=== PATIENT | male | born 1990 | race Native Hawaiian/Other Pacific Islander ===

== ENCOUNTER 2017-01-30 21:07 | Inpatient (IN) | payer OTHER ==
[2017-01-30] MEDS ORDERED: Sodium Chloride 0.9% 1,000 ML IV ONE (22:02)
[2017-01-30] MEDS ORDERED: Sodium Chloride 0.9% 1,000 ML ONE (22:08)
[2017-01-30 22:25] LABS: BASO # 0.1 K/uL (0.0-0.2); BASO % 0.7 % (0.0-2.0); EOS # 0.7 K/uL (0.0-0.7); EOS % 8.4 % (0.0-4.0); HEMATOCRIT 38.7 % (35.0-51.0); LYMPH # 3.1 K/uL (1.0-4.3); MEAN CELL VOLUME 79.8 fL (80.0-94.0); MEAN CORPUSCULAR HEMOGLOBIN 26.3 pg (27.0-31.0); MEAN PLATELET VOLUME 7.8 fL (7.2-11.7); MONO # 0.7 K/uL (0.0-0.8); MONO % 8.4 % (0.0-10.0); RED CELL DISTRIBUTION WIDTH 12.8 % (11.5-14.5); WHITE BLOOD COUNT 8.8 K/uL (4.8-10.8)
[2017-01-30 22:37] LABS: CHLORIDE 100 mmol/L (98-107); SODIUM 142 mmol/L (132-148)
[2017-01-30 22:38] LABS: POTASSIUM 3.8 mmol/L (3.6-5.2)
[2017-01-30 22:39] LABS: GFR AFRICAN-AMERICAN > 60
[2017-01-30 22:40] LABS: ALB/GLOB RATIO 1.5 (1.0-2.1); ALKALINE PHOSPHATASE 58 U/L (38-126); ALT/SGPT 23 U/L (21-72); AST/SGOT 20 U/L (17-59); BILIRUBIN,TOTAL 0.5 mg/dL (0.2-1.3); BLOOD UREA NITROGEN 17 mg/dL (9-20); CALCIUM 8.4 mg/dl (8.6-10.4); CARBON DIOXIDE 25 mmol/L (22-30); GLUCOSE,RANDOM 100 mg/dL (75-110)
[2017-01-30 23:08] LABS: RBC URINE < 1 /hpf (0-3); URINE BILIRUBIN NEGATIVE (NEGATIVE); URINE BLOOD NEGATIVE (NEGATIVE); URINE COLOR Straw (YELLOW); URINE GLUCOSE (UA) NORMAL (Normal); URINE KETONE NEGATIVE (NEGATIVE); URINE LEUKOCYTE ESTERASE NEG Leu/uL (Negative); URINE PROTEIN NEGATIVE (NEGATIVE); URINE UROBILINOGEN NORMAL mg/dL (0.2-1.0); WBC URINE < 1 /hpf (0-5)
--- NOTE | 2017-01-30 23:58 | C.PDOC ---
History Of Present Illness 26 year old male presents to the ED with complaints of left sided intermittent, non-radiating periumbilical pain, nausea, and three episodes of vomiting x 2 days. He tried taking pepcid and tylenol at home with no relief. Patient denies diarrhea, fever/chills, dysuria, or hematuria. He denies personal history of kidney stones, but father has had stones. Time Seen by Provider: 01/30/17 21:38 Chief Complaint (Nursing): Abdominal Pain History Per: Patient History/Exam Limitations: no limitations Onset/Duration Of Symptoms: Days Current Symptoms Are (Timing): Still Present Severity: Moderate Location Of Pain/Discomfort: Periumbilical Radiation Of Pain To:: None Quality Of Discomfort: Sharp, "Pain" Associated Symptoms: Nausea, Vomiting. denies: Diarrhea Past Medical History Reviewed: Historical Data, Nursing Documentation, Vital Signs Vital Signs: Last Vital Signs Temp 97.5 F L 01/31/17 01:32 Pulse 57 L 01/31/17 01:32 Resp 16 01/31/17 01:32 BP 128/80 01/31/17 01:32 Pulse Ox 97 01/31/17 01:32 - Medical History PMH: No Chronic Diseases Family History: Denies: Other Other Family History: father - kidney stones - Social History Hx Alcohol Use: No Hx Substance Use: No - Immunization History Hx Tetanus Toxoid Vaccination: No Hx Influenza Vaccination: No Hx Pneumococcal Vaccination: No Review Of Systems Except As Marked, All Systems Reviewed And Found Negative. Constitutional: Negative for: Fever, Chills Cardiovascular: Negative for: Chest Pain, Palpitations Respiratory: Negative for: Cough, Shortness of Breath Gastrointestinal: Positive for: Nausea, Vomiting, Abdominal Pain (periumbilical ). Negative for: Diarrhea Genitourinary: Negative for: Dysuria, Hematuria Physical Exam - Physical Exam Appears: Well, Non-toxic, In Acute Distress (in mild pain ) Skin: Warm, Dry Head: Normacephalic Oral Mucosa: Moist Cardiovascular: Rhythm Regular Respiratory: Normal Breath Sounds, No Rales, No Rhonchi, No Wheezing Gastrointestinal/Abdominal: Bowel Sounds, Soft, Tenderness (RLQ and suprapubic TTP ), No Distention, No Guarding, No Rebound Back: Normal Inspection, No CVA Tenderness Neurological/Psych: Oriented x3 ED Course And Treatment - Laboratory Results Result Diagrams: 01/30/17 22:22 01/30/17 22:22 Lab Interpretation: Normal ECG: Interpreted By Me, Viewed By Me (sinus bradycardia 57 bpm, normal axis, no acute ST/T wave changes) ECG Interpretation: Normal O2 Sat by Pulse Oximetry: 98 (RA) Pulse Ox Interpretation: Normal - Radiology CXR: Interpreted by Me, Viewed By Me CXR Interpretation: Yes: No Acute Disease - CT Scan/US CT SCAN ABD/PELVIS Other Rad Studies (CT/US): Read By Radiologist, Radiology Report Reviewed CT/US Interpretation: Accession No. : [id number]. Patient Name / ID : BALJIT SANTACRUZ / [id number]. Exam Date : 01/30/2017 23:50:41 ( Approved ). Study Comment : Sex / Age : M / 26Y. Creator : NADIRA SANDERS. Dictator : Grey Roll Worker : Collection Administrator : NADIRA SANDERS. Approver2 : Report Date : 2016 00:13:00. My Comment : . [facility]. [address] [place] [address]. Tel. no. [phone]. . . Patient Name: NEETA SMILEY . Pt. Address: [address] [place] [address]. Rec #: [id number]. [place] [address]: Janey Pace DO Pt Phone: [facility] 1990 [facility] Age : 26 Order #: [id number]. Reason for exam: rlq pain r/o stone vs appy. . . . . . CT Scan. . . ABD PELVIS W /O PO OR IV CONT Exam Date: 01/30/17. . This imaging exam was performed at [facility]. EXAM: CT Abdomen and Pelvis Without Intravenous Contrast. . CLINICAL HISTORY: 26 years old, male; Pain; Abdominal pain and other: Left side pain goimg to. lower mid abd; Additional info: Rlq pain R/O stone vs appy. . TECHNIQUE: Axial computed tomography images of the abdomen and pelvis without. intravenous contrast. This CT exam was performed using one or more of the. following dose reduction techniques: automated exposure control, adjustment of. the mA and/or kV according to patient size, and/or use of iterative. reconstruction technique. Coronal and sagittal reformatted images were created and reviewed. . COMPARISON: No relevant prior studies available. . . . FINDINGS: Lower thorax: The bilateral lung bases are clear. . ABDOMEN: Liver: No acute findings. Gallbladder and bile ducts: The gallbladder is decompressed, without. calcified stones. No intra-extrahepatic biliary ductal dilation. Pancreas: Limited evaluation secondary to the lack of intravenous contrast. Spleen: No acute findings. Adrenals: No acute findings. Kidneys and ureters: No obstructing stones. No hydronephrosis. A punctate. calcification is identified within the left hemipelvis, posterior and medial to. the course of the left ureter without significant left-sided. hydroureteronephrosis. . . PELVIS: Bladder: No acute findings. Reproductive: No acute findings. Appendix : The appendix is distended, measuring 10 mm and edematous without. intraluminal air. Trace surrounding periappendiceal and pericecal inflammatory. change is noted. No drainable fluid collection or perforation is present. . ABDOMEN and PELVIS: Stomach and bowel: As above. Peritoneum: As above. Lymph nodes: Limited evaluation without intravenous contrast. Vasculature: No aortic aneurysm. Bones: No acute fracture. . IMPRESSION: . Findings ( which in the appropriate clinical scenario) suggest early acute. appendicitis, for which clinical correlation is needed. . Dictated By: Nadira Sanders MD. Dictated Date/Time: 01/31/1712. Signed By: Nadira Sanders MD. Date Signed: 01/31/1712. Transcribed By: [facility]. Transcribe Date/Time: 01/31/1712. BISMARK/KEIKO Progress Note: Blood work, UA, CT scan abd/pelvis ordered and reviewed. Patient given IV NS bolus, IV toradol. CT scan shows early acute appendicitis- IV zosyn ordered. - Physician Consult Information Physician Contacted: Zack Anderson Outcome Of Conversation: Discussed patient with Dr. Anderson, he agrees with admission to his service for acute appendicitis. vice president tax notified. Medical Decision Making Medical Decision Making: differential diagnoses considered: acute appendicitis, renal colic, gastroenteritis, colitis, pyelonephritis, cystitis, prostatitis, diverticulitis , testicular torsion. musculoskeletal pain Disposition - Disposition Disposition: HOSPITALIZED Disposition Time: 00:40 Condition: STABLE - Clinical Impression Clinical Impression: Acute appendicitis - Scribe Statement The provider has reviewed the documentation as recorded by the Scribe Shawna Vargas All medical record entries made by the Scribe were at my direction and personally dictated by me. I have reviewed the chart and agree that the record accurately reflects my personal performance of the history, physical exam, medical decision making, and the department course for this patient. I have also personally directed, reviewed, and agree with the discharge instructions and disposition. Decision To Admit - Pt Status Changed To: Hospital Disposition Of: Inpatient - Admit Certification Admit to Inpatient:: After my assessment, the patient will require hospitalization for at least two midnights. This is because of the severity of symptoms shown, intensity of services needed, and/or the medical risk in this patient being treated as an outpatient. - InPatient: Physician Admission Certification:: see notes - . Bed Request Type: Regular Admitting Physician: Zack Anderson Patient Diagnosis: Acute appendicitis
--- NOTE | 2017-01-31 00:13 | CT ---
EXAM: CT Abdomen and Pelvis Without Intravenous Contrast CLINICAL HISTORY: 26 years old, male; Pain; Abdominal pain and other: Left side pain goimg to lower mid abd; Additional info: Rlq pain R/O stone vs appy TECHNIQUE: Axial computed tomography images of the abdomen and pelvis without intravenous contrast. This CT exam was performed using one or more of the following dose reduction techniques: automated exposure control, adjustment of the mA and/or kV according to patient size, and/or use of iterative reconstruction technique. Coronal and sagittal reformatted images were created and reviewed. COMPARISON: No relevant prior studies available. FINDINGS: Lower thorax: The bilateral lung bases are clear. ABDOMEN: Liver: No acute findings Gallbladder and bile ducts: The gallbladder is decompressed, without calcified stones. No intra-extrahepatic biliary ductal dilation. Pancreas: Limited evaluation secondary to the lack of intravenous contrast. Spleen: No acute findings. Adrenals: No acute findings. Kidneys and ureters: No obstructing stones. No hydronephrosis. A punctate calcification is identified within the left hemipelvis, posterior and medial to the course of the left ureter without significant left-sided hydroureteronephrosis. PELVIS: Bladder: No acute findings. Reproductive: No acute findings. Appendix: The appendix is distended, measuring 10 mm and edematous without intraluminal air. Trace surrounding periappendiceal and pericecal inflammatory change is noted. No drainable fluid collection or perforation is present. ABDOMEN and PELVIS: Stomach and bowel: As above. Peritoneum: As above. Lymph nodes: Limited evaluation without intravenous contrast. Vasculature: No aortic aneurysm. Bones: No acute fracture. IMPRESSION: Findings (which in the appropriate clinical scenario) suggest early acute appendicitis, for which clinical correlation is needed.
[2017-01-31] MEDS ORDERED: Piperacillin/Tazobact 3.375 gm 100 ML IV STA (00:40)
[2017-01-31] MEDS ORDERED: Piperacillin/Tazobact 3.375 gm 100 ML IVPB ONE (01:06)
[2017-01-31 01:14] LABS: INR 1.1
[2017-01-31] MEDS: Piperacillin/Tazobact 3.375 GM in Sodium Chloride 100 ML IVPB SCH ×3 (01:22→17:09)
--- NOTE | 2017-01-31 01:32 | CP.PCM.HP ---
History of Present Illness - History of Present Illness History of Present Illness: Surgery: Dr. Anderson CC: abdominal pain HPI: Patient is a 26 y/o male who complains of lower abdominal pain that started about 3 days ago. He states the pain is sharp and mainly located rama- umbilical. He reports pain progressively getting worse. He states he started vomiting yesterday multiple episodes. He denies f/c. He reports normal bowel movement tonight w/o blood. He denies constipation. He reports his last meal was dinner around 6 pm last night which he tolerated. He denies having pain like this in the past. He denies any other symptoms. PMH: seasonal allergies PSH: denies NKDA Social: denies etoh or tobacco use Family hx: Dad with HTN Present on Admission - Present on Admission Any Indicators Present on Admission: No Review of Systems - Review of Systems All systems: reviewed and no additional remarkable complaints except Review of Systems: otherwise negative unless stated in HPI Past Patient History - Past Social History Smoking Status: Never Smoked - PSYCHIATRIC Hx Substance Use: No - SURGICAL HISTORY Hx Surgeries: No Meds Allergies/Adverse Reactions: Allergies Allergy/AdvReac Type Severity Reaction Status Date / Time No Known Allergies Allergy Verified 01/30/17 21:32 Physical Exam - Constitutional Appears: Non-toxic, No Acute Distress - Head Exam Head Exam: ATRAUMATIC, NORMOCEPHALIC - Eye Exam Eye Exam: EOMI, Normal appearance - ENT Exam ENT Exam: Mucous Membranes Moist - Respiratory Exam Respiratory Exam: NORMAL BREATHING PATTERN. absent: Respiratory Distress - Cardiovascular Exam Cardiovascular Exam: REGULAR RHYTHM. absent: Tachycardia - GI/Abdominal Exam GI & Abdominal Exam: Soft, Tenderness (mild in RLQ ). absent: Distended, Guarding, Rebound, Rigid - Extremities Exam Extremities exam: Positive for: normal inspection. Negative for: calf tenderness - Neurological Exam Neurological exam: CN II-XII Intact, Oriented x3 - Psychiatric Exam Psychiatric exam: Normal Affect, Normal Mood - Skin Skin Exam: Dry, Intact, Normal Color, Warm Results - Vital Signs Recent Vital Signs: Last Vital Signs Temp 98.3 F 01/30/17 21:25 Pulse 68 01/30/17 21:25 Resp 20 01/30/17 21:25 BP 131/82 01/30/17 21:25 Pulse Ox 98 01/31/17 00:57 - Labs Result Diagrams: 01/30/17 22:22 01/30/17 22:22 Labs: Laboratory Results - last 24 hr 01/31/17 01:02 PT 11.9 INR 1.1 APTT 31 Assessment & Plan - Assessment and Plan (Free Text) Assessment: 26 y/o male w/ acute appendicitis Plan: -Ct w/ 10mm appy and inflammation -admit to hospital -NPO -IVFs -IV abx -pain control -nausea control -patient can ambulate freely -plan for OR Wednesday at 1 pm -consent in chart -scds/pepcid -d/w Dr. Justin Montalvo PGY1
[2017-01-31] MEDS: Lactated Ringer's 1,000 ML IV SCH ×3 (02:11→22:46)
--- NOTE | 2017-01-31 12:21 | RAD ---
PROCEDURE: CHEST RADIOGRAPH, 1 VIEW portable semi erect study 00:46. HISTORY: preop COMPARISON: None available. FINDINGS: LUNGS: Clear. PLEURA: No pneumothorax or pleural fluid seen. CARDIOVASCULAR: Normal. OSSEOUS STRUCTURES: No significant abnormalities. VISUALIZED UPPER ABDOMEN: Normal. OTHER FINDINGS: None. IMPRESSION: No active disease. Concordant results with the preliminary interpretation rendered by the emergency department physician procedure.
[2017-01-31] MEDS ORDERED: Bupivacaine-Epi 0.5%-1:200,000 PF Inj ONE (13:07)
[2017-01-31] MEDS ORDERED: Propofol 10 mg/ml Inj (20 ML) ONE (13:17)
[2017-01-31] MEDS ORDERED: Midazolam 2 MG/2 ML VIAL ONE (13:17)
[2017-01-31] MEDS ORDERED: Succinylcholine Chloride 20 mg/ml Syr (5 ml) IV ONE (13:35)
[2017-01-31] MEDS ORDERED: Neostigmine Methylsulfate 3mg/3ml Syringe IV ONE (13:35)
[2017-01-31] MEDS ORDERED: HYDROmorphone 0.5 mg/0.5 ml ISec IVP PRN (13:59)
--- NOTE | 2017-01-31 14:01 | PCM.SURG1 ---
Surgeon's Initial Post Op Note - Surgeon's Notes Surgeon: Dr. Anderson Bleach Liquor Maker: Dr. Pop PGY-2 Type of Anesthesia: General Endo, Local Pre-Operative Diagnosis: Acute appendicitis Operative Findings: Acute appendicitis Post-Operative Diagnosis: Acute appendicitis Operation Performed: Laparoscopic appendectomy Specimen/Specimens Removed: appendix Estimated Blood Loss: EBL {In ML}: 18 Blood Products Given: N/A Drains Used: No Drains Post-Op Condition: Good Date of Surgery/Procedure: 01/31/17 Time of Surgery/Procedure: 13:00
[2017-01-31] MEDS ORDERED: HYDROmorphone 0.5 mg/0.5 ml ISec IVP ONE (14:30)
[2017-01-31] MEDS: Morphine 4 MG/ML VIAL IVP PRN ×2 (15:30→19:24)
--- NOTE | 2017-01-31 20:38 | OP ---
PROCEDURE DATE: 01/31/2017 PREOPERATIVE DIAGNOSIS: Acute appendicitis. POSTOPERATIVE DIAGNOSIS: Acute appendicitis. PROCEDURE PERFORMED: Laparoscopic appendectomy. SURGEON: Zack Anderson MD. ORDERLIES TEACHER: Steph Pop. FINDINGS: The appendix was not ruptured, but it was markedly dilated and hyperemic. There is no flu id in the peritoneal cavity. The rest of the abdomen appeared to be within normal limits. PROCEDURE: Under general anesthesia, the patient was prepared and draped in sterile fashion. CO2 wa s insufflated through a Veress needle inserted in the umbilical area. A 12 mm trocar was inserted in the umbilicus through which the laparoscope was inserted. Under direct vision, a 5 mm suprapubic po rt and then a 5 mm left lower quadrant port were inserted. The patient was placed in a Trendelenburg position and turned slightly over towards the left side. The appendix was identified. The base was freed. The mesoappendix was transected with the MICHAEL stapler utilizing white shanique. The patient's appendix was also transected with the aid of the stapler with blue shanique. The appendix and the me so were then placed in an Endocatch and was extracted through the umbilical port. Irrigating fluid w as given. It was suctioned out. No further bleeding was noted. CO2 allowed to escape from the rama toneal cavity. Trocars removed and the wound closed in a routine fashion. ESTIMATED BLOOD LOSS: About 5 mL. COMPLICATIONS: None. Zack Anderson MD cc: 159 TT: 01/31/2017 20:38:22 ms
[2017-02-01] MEDS: Piperacillin/Tazobact 3.375 GM in Sodium Chloride 100 ML IVPB SCH ×3 (00:22→17:24)
[2017-02-01] MEDS: Morphine 4 MG/ML VIAL IVP PRN ×3 (03:35→13:23)
[2017-02-01] MEDS: Lactated Ringer's 1,000 ML IV SCH ×2 (03:36→09:45)
[2017-02-01 08:10] VITALS: PULSE 81
[2017-02-01 08:20] LABS: BASO # 0.1 K/uL (0.0-0.2); BASO % 0.9 % (0.0-2.0); EOS # 0.9 K/uL (0.0-0.7); EOS % 11.1 % (0.0-4.0); HEMATOCRIT 40.5 % (35.0-51.0); LYMPH # 1.9 K/uL (1.0-4.3); MEAN CELL VOLUME 80.9 fL (80.0-94.0); MEAN CORPUSCULAR HEMOGLOBIN 26.5 pg (27.0-31.0); MEAN CORPUSCULAR HGB CONC 32.8 g/dL (33.0-37.0); MEAN PLATELET VOLUME 7.6 fL (7.2-11.7); MONO # 0.5 K/uL (0.0-0.8); MONO % 6.5 % (0.0-10.0); RED CELL DISTRIBUTION WIDTH 13.3 % (11.5-14.5); WHITE BLOOD COUNT 8.4 K/uL (4.8-10.8)
[2017-02-01 08:52] LABS: CHLORIDE 97 mmol/L (98-107)
[2017-02-01 08:53] LABS: POTASSIUM 3.9 mmol/L (3.6-5.2); SODIUM 137 mmol/L (132-148)
[2017-02-01 08:55] LABS: GFR AFRICAN-AMERICAN > 60
[2017-02-01 08:56] LABS: BLOOD UREA NITROGEN 10 mg/dL (9-20); CARBON DIOXIDE 31 mmol/L (22-30); GLUCOSE,RANDOM 91 mg/dL (75-110)
[2017-02-01 08:57] LABS: CALCIUM 8.4 mg/dl (8.6-10.4)
[2017-02-01] MEDS ORDERED: Pneumococcal 23-Valent Vaccine IM ONE (14:00)
[2017-02-01 15:49] VITALS: BP 136/81; RESP 18; TEMP 98.9; O2SAT 97
--- NOTE | 2017-02-01 16:07 | CP.PCM.DIS ---
Provider - Provider Date of Admission: 01/31/17 00:40 Attending physician: Zack Anderson MD Time Spent in preparation of Discharge (in minutes): 20 Diagnosis - Discharge Diagnosis (1) Acute appendicitis Status: Acute Hospital Course - Lab Results Lab Results: Most Recent Lab Values WBC 8.4 K/uL (4.8-10.8) 02/01/17 08:07 RBC 5.00 Mil/uL (4.40-5.90) 02/01/17 08:07 Hgb 13.3 g/dL (12.0-18.0) 02/01/17 08:07 Hct 40.5 % (35.0-51.0) 02/01/17 08:07 MCV 80.9 fL (80.0-94.0) 02/01/17 08:07 MCH 26.5 pg (27.0-31.0) L 02/01/17 08:07 MCHC 32.8 g/dL (33.0-37.0) L 02/01/17 08:07 RDW 13.3 % (11.5-14.5) 02/01/17 08:07 Plt Count 282 K/uL (130-400) 02/01/17 08:07 MPV 7.6 fL (7.2-11.7) 02/01/17 08:07 Neut % (Auto) 58.5 % (50.0-75.0) 02/01/17 08:07 Lymph % (Auto) 23.0 % (20.0-40.0) 02/01/17 08:07 Baldwin % (Auto) 6.5 % (0.0-10.0) 02/01/17 08:07 Eos % (Auto) 11.1 % (0.0-4.0) H 02/01/17 08:07 Baso % (Auto) 0.9 % (0.0-2.0) 02/01/17 08:07 Neut # 4.9 K/uL (1.8-7.0) 02/01/17 08:07 Lymph # 1.9 K/uL (1.0-4.3) 02/01/17 08:07 Baldwin # 0.5 K/uL (0.0-0.8) 02/01/17 08:07 Eos # 0.9 K/uL (0.0-0.7) H 02/01/17 08:07 Baso # 0.1 K/uL (0.0-0.2) 02/01/17 08:07 PT 11.9 SECONDS (9.7-12.2) 01/31/17 01:02 INR 1.1 01/31/17 01:02 APTT 31 SECONDS (21-34) 01/31/17 01:02 Sodium 137 mmol/L (132-148) 02/01/17 08:07 Potassium 3.9 mmol/L (3.6-5.2) 02/01/17 08:07 Chloride 97 mmol/L (98-107) L 02/01/17 08:07 Carbon Dioxide 31 mmol/L (22-30) H 02/01/17 08:07 Anion Gap 13 (10-20) 02/01/17 08:07 BUN 10 mg/dL (9-20) 02/01/17 08:07 Creatinine 1.0 MG/DL (0.8-1.5) 02/01/17 08:07 Est GFR ( Amer) > 60 02/01/17 08:07 Est GFR (Non-Af Amer) > 60 02/01/17 08:07 Random Glucose 91 mg/dL (75-110) 02/01/17 08:07 Calcium 8.4 mg/dl (8.6-10.4) L 02/01/17 08:07 Total Bilirubin 0.5 mg/dL (0.2-1.3) 01/30/17 22:22 AST 20 U/L (17-59) 01/30/17 22:22 ALT 23 U/L (21-72) 01/30/17 22:22 Alkaline Phosphatase 58 U/L (38-126) 01/30/17 22:22 Total Protein 7.0 g/dL (6.3-8.3) 01/30/17 22:22 Albumin 4.2 g/dL (3.5-5.0) 01/30/17 22:22 Globulin 2.8 gm/dL (2.2-3.9) 01/30/17 22:22 Albumin/Globulin Ratio 1.5 (1.0-2.1) 01/30/17 22:22 Lipase 76 U/L (23-300) 01/30/17 22:22 Urine Color Straw (YELLOW) 01/30/17 23:03 Urine Clarity Clear (Clear) 01/30/17 23:03 Urine pH 7.0 (5.0-8.0) 01/30/17 23:03 Ur Specific [place] 1.018 (1.003-1.030) 01/30/17 23:03 Urine Protein Negative mg/dL (NEGATIVE) 01/30/17 23:03 Urine Glucose (UA) Normal mg/dL (Normal) 01/30/17 23:03 Urine Ketones Negative mg/dL (NEGATIVE) 01/30/17 23:03 Urine Blood Negative (NEGATIVE) 01/30/17 23:03 Urine Nitrate Negative (NEGATIVE) 01/30/17 23:03 Urine Bilirubin Negative (NEGATIVE) 01/30/17 23:03 Urine Urobilinogen Normal mg/dL (0.2-1.0) 01/30/17 23:03 Ur Leukocyte Esterase Neg Prisca/uL (Negative) 01/30/17 23:03 Urine WBC (Auto) < 1 /hpf (0-5) 01/30/17 23:03 Urine RBC (Auto) < 1 /hpf (0-3) 01/30/17 23:03 Blood Type B POSITIVE 01/31/17 01:02 Antibody Screen Negative 01/31/17 01:02 - Hospital Course Hospital Course: Patient was admitted for acute appendicitis and subsequently taken to OR. Patient underwent lap appy and tolerated procedure well. After OR patient started on regular diet and transferred to floor. Patient was ambulating, tolerating diet, and pain controlled on POD1 and found suitable for discharge. Discharge Exam - Head Exam Head Exam: ATRAUMATIC, NORMOCEPHALIC - Eye Exam Eye Exam: EOMI, Normal appearance - ENT Exam ENT Exam: Mucous Membranes Moist - Respiratory Exam Respiratory Exam: NORMAL BREATHING PATTERN. absent: Respiratory Distress - Cardiovascular Exam Cardiovascular Exam: REGULAR RHYTHM. absent: Tachycardia - GI/Abdominal Exam GI & Abdominal Exam: Soft. absent: Distended, Guarding, Rebound, Rigid, Tenderness - Psychiatric Exam Psychiatric exam: Normal Affect, Normal Mood - Skin Skin Exam: Dry, Normal Color, Warm Discharge Plan - Follow Up Plan Condition: STABLE Disposition: HOME/ ROUTINE Patient education suggested?: Yes Instructions: Laparoscopic Appendectomy (DC)
--- NOTE | 2017-02-01 17:13 | CARD ---
APPROVED REPORT EKG Measurement Heart [id number] <Conclusion> Sinus bradycardia Otherwise normal ECG
== END 2017-02-01 19:00 | disposition home or self-care (01) | DRG 883 ==
LOC: C.ER 21:07 → EDBD 21:07 → C.6T 01-31 00:40
PROVIDERS: ADMIT Surgery; ATTEND Surgery
PROC: 0DTJ4ZZ Resection of Appendix, Percutaneous Endoscopic Approach (ICD-10-PCS; principal; 2017-01-31 13:00)
DX: K35.80 Unspecified acute appendicitis (principal)

== ENCOUNTER 2018-11-27 07:50 | Emergency (ER) | payer SELFPAY ==
[2018-11-27 07:55] VITALS: BMI 25.9
[2018-11-27 07:56] VITALS: BP 142/86; PULSE 87; RESP 18; TEMP 98.6; O2SAT 98
[2018-11-27] MEDS ORDERED: Naproxen 550 mg Tab PO STA (08:50)
[2018-11-27] MEDS ORDERED: Naproxen 550 mg Tab PO ONE (09:09)
--- NOTE | 2018-11-27 09:58 | C.PDOC ---
History Of Present Illness 28 years old male presents to ED for complaints of neck pain that began few days ago and radiates to right arm. Patient reports taking tylenol with minimal relief. Patient states pain worsens with movement. Denies fall, injury, heavy lifting, or any other complaints. Denies smoking, alcohol use, or allergies to any medications. Time Seen by Provider: 11/27/18 08:00 Chief Complaint (Nursing): Back Pain History Per: Patient History/Exam Limitations: no limitations Onset/Duration Of Symptoms: Days Current Symptoms Are (Timing): Still Present Previous Symptoms: None Associated Symptoms: None Exacerbating Factor(s): Movement Recent travel outside of the [place]: No Past Medical History Reviewed: Historical Data, Nursing Documentation, Vital Signs Vital Signs: Last Vital Signs Temp 98.6 F 11/27/18 07:54 Pulse 87 11/27/18 07:54 Resp 18 11/27/18 07:54 BP 142/86 11/27/18 07:54 Pulse Ox 98 11/27/18 07:54 - Medical History PMH: No Chronic Diseases Surgical History: Appendectomy - [facility] Procedures RESECTION OF APPENDIX, PERCUTANEOUS ENDOSCOPIC APPROACH (01/31/17) Family History: States: No Known Family Hx - Social History Hx Alcohol Use: No Hx Substance Use: No - Immunization History Hx Tetanus Toxoid Vaccination: No Hx Influenza Vaccination: No Hx Pneumococcal Vaccination: No Review Of Systems Except As Marked, All Systems Reviewed And Found Negative. Constitutional: Negative for: Fever, Chills Gastrointestinal: Negative for: Nausea, Vomiting, Abdominal Pain, Diarrhea Musculoskeletal: Positive for: Neck Pain (radiates to right arm ) Skin: Negative for: Rash Neurological: Negative for: Weakness, Numbness Physical Exam - Physical Exam Appears: Well, Non-toxic, No Acute Distress Skin: Normal Color, Warm, Dry Head: Atraumatic, Normacephalic Eye(s): bilateral: Normal Inspection, PERRL, EOMI Oral Mucosa: Moist Neck: Normal ROM (Full ROM ), Paracervical Tenderness, Other (Parathoracic tenderness. Positive muscle spasms in trapezius muscle. Pain with turning neck to right side. ) Chest: Symmetrical, No Tenderness Cardiovascular: Rhythm Regular, No Murmur Respiratory: Normal Breath Sounds, No Rales, No Rhonchi, No Wheezing Gastrointestinal/Abdominal: Soft, No Tenderness Back: Normal Inspection, No CVA Tenderness Extremity: Normal ROM, Capillary Refill (Less than 2 seconds ) Extremity: Bilateral: Atraumatic, Normal Color And Temperature, Normal ROM Pulses: Left Carotid: Normal, Right Carotid: Normal Neurological/Psych: Oriented x3, Normal Speech, Normal Motor, Normal Sensation, Normal Reflexes, Other Gait: Steady ED Course And Treatment O2 Sat by Pulse Oximetry: 98 (RA) Pulse Ox Interpretation: Normal Medical Decision Making Medical Decision Making: Plan: * Anaprox * Valium Progress: Patient states he feels better upon re-evaluation. Denies any other complaints at this time. Patient is stable for discharge and will be discharged. Care instructions advised. Return if symptoms persist or worsen. Disposition - Disposition Referrals: Ja Larson MD [Non-Staff] - Disposition: HOME/ ROUTINE Disposition Time: 09:56 Condition: GOOD Additional Instructions: Follow up with the medical doctor within 1-2 days. Return if worsened. Prescriptions: diaZEpam [Valium] 5 mg PO TID #21 tab Lidocaine 5% [Lidoderm] 1 each TP DAILY #10 patch Naproxen [Naprosyn] 500 mg PO BID #20 tab Instructions: Radiculopathy (DC) Forms: [employer] (French), Work Excuse - Clinical Impression Clinical Impression: Cervical radiculopathy - PA / [employer] / Resident Statement MD/DO has reviewed & agrees with the documentation as recorded. - Scribe Statement The provider has reviewed the documentation as recorded by the Luis Felipeiblois Manuel All medical record entries made by the Luis Felipeiblois were at my direction and personally dictated by me. I have reviewed the chart and agree that the record accurately reflects my personal performance of the history, physical exam, medical decision making, and the department course for this patient. I have also personally directed, reviewed, and agree with the discharge instructions and disposition.
== END 2018-11-27 10:05 | disposition home or self-care (01) ==
LOC: C.ER 07:50
DX: M54.12 Radiculopathy, cervical region (principal)